=== PATIENT | male | born 1980 | race Caucasian/White ===

== ENCOUNTER 2023-07-20 10:30 | Outpatient (CLI) | payer OTHER, SELFPAY | END 2023-07-20 10:31 | disposition home or self-care (01) | PROVIDERS: PCP Emergency Medicine; Visit Provider Emergency Medicine | DX: Z13.220 Encounter for screening for lipoid disorders (principal); Z13.0 Encounter for screening for diseases of the blood and blood-forming organs and certain disorders involving the immune mechanism; Z13.228 Encounter for screening for other metabolic disorders | CPT/HCPCS: 80053; 80061; 82728 ==